=== PATIENT | female | born 1995 | race Caucasian/White ===

== ENCOUNTER 2023-03-15 18:33 | Emergency (ER) | payer SELFPAY ==
[~2023-03-15] VITALS: Ht 162.6 cm; Wt 96.2 kg
[2023-03-15 19:13] VITALS: BP_SYST 116; PULSE 98; RESP 20; TEMP 98.1; O2SAT 95
--- NOTE | 2023-03-15 19:18 | NUR ---
Patient triaged and placed in waiting room. VSS and patient appears in no acute distress at this time. Accompanied by PARTNER, awaiting available bed, and MD notified of need for MSE.
--- NOTE | 2023-03-15 19:29 | NUR ---
Patient to ER bed HB1 to gown for evaluation. Side rails up. Report given to TOREY LEWIS..
--- NOTE | 2023-03-15 19:37 | NUR ---
ER at bedside examining patient.
--- NOTE | 2023-03-15 19:38 | NUR ---
pt bib self. c/o L ear pain. Onset of 3 days. Pt states to have recurrent ear infections. Pt states pain 8/10. Pt states itchiness and warm sensation inside L ear. Pt states fullness sensation in L ear. Pt denies taking pain medication. Pt denies N/V/D. Pt denies sore throat. Pt denies cough. Pt afebrile. Noted redness inside L ear. Pt AAOX4. VSS. Skin dry and intact. Pt in bed with side rails up.
[2023-03-15] MEDS ORDERED: IBUPROFEN 600 MG TABLET PO ONE (19:45)
[2023-03-15] MEDS ORDERED: AMOX500C2 PO (19:54)
[2023-03-15 20:04] VITALS: BP_SYST 116; PULSE 98; RESP 20; TEMP 98.1; O2SAT 95
--- NOTE | 2023-03-15 20:04 | NUR ---
Patient given written and verbal discharge instructions and verbalizes understanding. ER MD discussed with patient the results and treatment provided. Patient in stable condition. ID arm band removed. Rx of AMOXICILLIN given. Patient educated on pain management and to follow up with PMD. Opportunity for questions provided and answered. Medication side effect fact sheet provided.
== END 2023-03-15 20:04 | disposition home or self-care (01) ==
LOC: SED 18:33
DX: H66.92 Otitis media, unspecified, left ear (principal); H92.02 Otalgia, left ear; Z79.899 Other long term (current) drug therapy
CPT/HCPCS: 99283